=== PATIENT | female | born 1950 | race Caucasian/White ===

== ENCOUNTER → 2017-01-02 | Outpatient (CLI) | payer MEDICARE, OTHER, MEDICAID ==
[~2017-01-02] MED LIST: ALBUTEROL SULF0.5 ML IH; ALBUTEROL0.63 MG/3 IH; ATENOLOL25 MG PO; BUPROPION XL300 MG PO; CALCIUM ACETAT667 MG PO; CEFDINIR 300MG300 MG PO; CETIRIZINE HCL10 MG PO; CYMBALTA60 MG PO; GABAPENTIN100 M1 PO; LEVOTHYROXINE0.05 MG NG; METFORMIN500 MG PO; PANTOPRAZOLE SO40 MG PO; PERI-COLACE 501 TAB PO; PRAVASTATIN 20M20 MG PO; PREDNISONE 20MG20 MG PO; SINGULAIR 10 MG10 MG PO; SYMBICORT1 AER IH; TESSALON PERLE100 MG PO; TRAMADOL 50MG T50 M1 PO; VERAPAMIL SR 2240 MG PO; VITAMIN D31000 IU PO; WARFARIN SODIUM1 MG PO
[2017-01-02 11:40] VITALS: BP 148/70
[2017-01-02 15:07] VITALS: BP 134/75
== END ==
LOC: RT 09:53
DX: J43.9 Emphysema, unspecified (principal); J44.9 Chronic obstructive pulmonary disease, unspecified; R06.02 Shortness of breath